=== PATIENT | male | born 1995 | race American Indian/Alaskan Native ===

== ENCOUNTER 2016-07-15 17:47 | Emergency (ER) | payer SELFPAY ==
[2016-07-15 19:29] LABS: Basophils % (Auto) 0.5 % (0.0-1.8); Eosinophils % (Auto) 1.2 % (0.0-4.3); Hematocrit 47.1 % (35.5-45.6); Hemoglobin 15.2 gm/dl (11.8-15.2); Mean Corpuscular HGB Conc 32 % (32-34); Mean Corpuscular Hemoglobin 28 pg (28-32); Mean Corpuscular Volume 86 fl (84-94); Platelet Count 217 K/mm3 (140-440); Red Blood Count 5.44 M/mm3 (3.65-5.03); Red Cell Distribution Width 14.1 % (13.2-15.2); White Blood Count 8.4 K/mm3 (4.5-11.0)
[2016-07-15 19:35] LABS: Alanine Aminotransferase 21 units/L (7-56); Albumin 4.6 g/dL (3.9-5); Albumin/Globulin Ratio 1.4 %; Alkaline Phosphatase 73 units/L (35-129); Anion Gap 17 mmol/L; BUN/Creatinine Ratio 12.72; Bilirubin,Total 0.4 mg/dL (0.1-1.2); Blood Urea Nitrogen 14 mg/dL (9-20); Calcium 9.8 mg/dL (8.4-10.2); Carbon Dioxide 27 mmol/L (22-30); Chloride 99.5 mmol/L (98-107); Glucose 92 mg/dL (75-100); Lipase 25 units/L (13-60); Potassium 4.1 mmol/L (3.6-5.0); Sodium 139 mmol/L (137-145); Total Protein 7.8 g/dL (6.3-8.2)
[2016-07-15 21:52] LABS: Bilirubin,Urine NEG (Negative); Blood,Urine NEG (Negative); Ketones,Urine NEG (Negative); Leukocyte Esterase,Urine NEG (Negative); Mucus,Urine 3+ /HPF; Nitrite,Urine NEG (Negative)
[2016-07-15 22:15] LABS: WBC,Urine < 1.0 /HPF (0.0-6.0)
[2016-07-16] MEDS ORDERED: BENTYL IM ONE (03:08)
[2016-07-16] MEDS ORDERED: PEPCID PO ONE (03:08)
[2016-07-16] MEDS ORDERED: ZOFRAN ODT PO ONE (03:08)
[2016-07-16] MEDS ORDERED: ALUM-MAG HYDROX-SIMETH 200-200-20MG/5ML PO ONE (03:08)
--- NOTE | 2016-07-16 03:09 | Emergency Department Report ---
ED Abdominal Pain HPI - General Chief Complaint: Abdominal Pain Stated Complaint: POSS STOMACH ULCER Time Seen by Provider: 07/16/16 02:58 Source: patient, RN notes reviewed Mode of arrival: Ambulatory Limitations: No Limitations - History of Present Illness Initial Comments: This is a 21-year-old male. He is previously unknown to me. He does not have a primary care doctor. He has no chronic medical conditions. He presents to the ER with epigastric and left upper quadrant pain for 6-8 months. The pain is achy and bubbling in nature. He admits to intermittent nausea and vomiting. Emesis is clear and yellow. It is nonbloody and nonbilious. There is no lower abdominal pain. He is defecating normally. He is passing gas normally. There is no testicular pain. There is no irritative or obstructive urinary symptoms. The patient reports daily consumption of marijuana. The patient reports that his symptoms occasionally improve when taking a hot shower. No recent trips greater than 4 hours. No recent hospital admissions. No leg pain. No leg swelling. The patient is not homicidal or suicidal. The patient reports that his diet is not very good, he reports that he eats a lot of heavy spicy foods, and that he does not consume enough water. MD Complaint: abdominal pain Location: LUQ, epigastric Severity scale (0 -10): 5 Quality: aching Consistency: intermittent Improves With: rest Worsens With: eating Associated Symptoms: nausea - Related Data Previous Rx's Medication Instructions Recorded Last Taken Type Dicyclomine [Bentyl] 10 mg PO QID PRN #20 capsule 07/16/16 Unknown Rx Famotidine [Pepcid] 20 mg PO BID #60 tablet 07/16/16 Unknown Rx Ondansetron [Zofran Odt] 4 mg PO QID PRN #20 tab.rapdis 07/16/16 Unknown Rx Allergies Allergy/AdvReac Type Severity Reaction Status Date / Time No Known Allergies Allergy Unverified 07/15/16 18:42 ED Review of Systems ROS: Stated complaint: POSS STOMACH ULCER Other details as noted in HPI Constitutional: denies: fever, malaise Eyes: denies: vision change ENT: denies: epistaxis Respiratory: denies: cough Cardiovascular: denies: chest pain Gastrointestinal: abdominal pain, nausea Genitourinary: denies: urgency, dysuria, testicular pain Musculoskeletal: denies: back pain Skin: denies: lesions Neurological: denies: weakness Psychiatric: denies: anxiety, homicidal thoughts, suicidal thoughts ED Past Medical Hx - Past Medical History Previous Medical History?: No - Surgical History Past Surgical History?: No - Social History Smoking Status: Current Every Day Smoker Substance Use Type: None - Medications Home Medications: Home Medications Medication Instructions Recorded Confirmed Last Taken Type Dicyclomine [Bentyl] 10 mg PO QID PRN #20 capsule 07/16/16 Unknown Rx Famotidine [Pepcid] 20 mg PO BID #60 tablet 07/16/16 Unknown Rx Ondansetron [Zofran Odt] 4 mg PO QID PRN #20 tab.rapdis 07/16/16 Unknown Rx ED Physical Exam - General Limitations: No Limitations General appearance: alert, in no apparent distress - Head Head exam: Present: atraumatic, normocephalic - Eye Eye exam: Present: normal appearance, EOMI. Absent: nystagmus - ENT ENT exam: Present: normal exam, normal orophraynx, mucous membranes moist, normal external ear exam - Neck Neck exam: Present: normal inspection, full ROM. Absent: tenderness, meningismus - Respiratory Respiratory exam: Present: normal lung sounds bilaterally. Absent: respiratory distress, wheezes, rales, rhonchi, stridor, chest wall tenderness, accessory muscle use, decreased breath sounds, prolonged expiratory - Cardiovascular Cardiovascular Exam: Present: regular rate, normal rhythm, normal heart sounds. Absent: bradycardia, tachycardia, irregular rhythm, systolic murmur, diastolic murmur, rubs, gallop - GI/Abdominal GI/Abdominal exam: Present: soft, normal bowel sounds. Absent: distended, tenderness, guarding, rebound, rigid, pulsatile mass - Rectal Rectal exam: Present: deferred - Extremities Exam Extremities exam: Present: normal inspection, full ROM, normal capillary refill. Absent: tenderness, pedal edema, joint swelling, calf tenderness - Back Exam Back exam: Present: normal inspection, full ROM. Absent: tenderness, CVA tenderness (R), CVA tenderness (L), muscle spasm, paraspinal tenderness, vertebral tenderness - Neurological Exam Neurological exam: Present: alert, oriented X3, normal gait, other (Extraocular movements intact. Tongue midline. No facial droop. Facial sensation intact to light touch in the V1, V2, V3 distribution bilaterally. 5 and 5 strength in 4 extremities.. Sensation is intact to light touch in 4 extremities.). Absent : motor sensory deficit - Psychiatric Psychiatric exam: Present: normal affect, normal mood - Skin Skin exam: Present: warm, dry, intact, normal color. Absent: rash ED Course Vital Signs 07/15/16 07/16/16 07/16/16 18:43 00:13 01:44 Temperature 98.1 F 99.6 F Pulse Rate 58 L 57 L Respiratory 20 18 18 Rate Blood Pressure 118/73 118/73 Blood Pressure [Left] O2 Sat by Pulse 99 100 Oximetry 07/16/16 07/16/16 01:59 03:00 Temperature Pulse Rate 60 60 Respiratory 18 18 Rate Blood Pressure Blood Pressure 108/68 112/72 [Left] O2 Sat by Pulse 98 97 Oximetry - Reevaluation(s) Reevaluation #1: 07/16/16 04:21 Differential diagnosis: GERD, gastritis, cannabinoid hyperemesis syndrome, reflux, constipation Assessment and plan: 21-year-old male with months of nonspecific abdominal pain. He is afebrile with reassuring vital signs, clinically sober. His abdomen is soft and benign, with no rebound, guarding or peritoneal signs. His laboratory studies were unremarkable. I instructed the patient that he will need to follow up with outpatient gastroenterology (I specifically recommended [facility], and informed the patient and his partner/ significant other that there is inpatient service hotline that can be contacted during normal business hours to arrange outpatient follow-up.) I informed the patient that he was going to be discharged, and I recommended that he discontinue marijuana consumption. I did offer treatment to the patient, but he eloped prior to receiving this treatment. 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 07/16/16 04:22 ED Medical Decision Making - Lab Data Result diagrams: 07/15/16 19:03 07/15/16 19:03 Vital Signs (72 hours) 07/15/16 07/16/16 07/16/16 18:43 00:13 01:44 Temperature 98.1 F 99.6 F Pulse Rate 58 L 57 L Respiratory 20 18 18 Rate Blood Pressure 118/73 118/73 Blood Pressure [Left] O2 Sat by Pulse 99 100 Oximetry 07/16/16 07/16/16 01:59 03:00 Temperature Pulse Rate 60 60 Respiratory 18 18 Rate Blood Pressure Blood Pressure 108/68 112/72 [Left] O2 Sat by Pulse 98 97 Oximetry Lab Results 07/15/16 07/15/16 07/15/16 Range/Units 19:03 19:03 21:13 WBC 8.4 (4.5-11.0) K/mm3 RBC 5.44 H (3.65-5.03) M/mm3 Hgb 15.2 (11.8-15.2) gm/dl Hct 47.1 H (35.5-45.6) % MCV 86 (84-94) fl MCH 28 (28-32) pg MCHC 32 (32-34) % RDW 14.1 (13.2-15.2) % Plt Count 217 (140-440) K/mm3 Lymph % (Auto) 26.6 (13.4-35.0) % [place] % (Auto) 5.7 (0.0-7.3) % Eos % (Auto) 1.2 (0.0-4.3) % Baso % (Auto) 0.5 (0.0-1.8) % Lymph # 2.2 (1.2-5.4) K/mm3 [place] # 0.5 (0.0-0.8) K/mm3 Eos # 0.1 (0.0-0.4) K/mm3 Baso # 0.0 (0.0-0.1) K/mm3 Seg Neutrophils % 66.0 (40.0-70.0) % Seg Neutrophils # 5.6 (1.8-7.7) K/mm3 Sodium 139 (137-145) mmol/L Potassium 4.1 (3.6-5.0) mmol/L Chloride 99.5 (98-107) mmol/L Carbon Dioxide 27 (22-30) mmol/L Anion Gap 17 mmol/L BUN 14 (9-20) mg/dL Creatinine 1.1 (0.8-1.5) mg/dL Estimated GFR > 60 ml/min BUN/Creatinine Ratio 12.72 % Glucose 92 (75-100) mg/dL Calcium 9.8 (8.4-10.2) mg/dL Total Bilirubin 0.4 (0.1-1.2) mg/dL AST 21 (5-40) units/L ALT 21 (7-56) units/L Alkaline Phosphatase 73 (35-129) units/L Total Protein 7.8 (6.3-8.2) g/dL Albumin 4.6 (3.9-5) g/dL Albumin/Globulin Ratio 1.4 % Lipase 25 (13-60) units/L Urine Color Yellow (Yellow) Urine Turbidity Clear (Clear) Urine pH 5.0 (5.0-7.0) Ur Specific [place] 1.032 H (1.003-1.030) Urine Protein 30 mg/dl (Negative) mg/dL Urine Glucose (UA) Neg (Negative) mg/dL Urine Ketones Neg (Negative) mg/dL Urine Blood Neg (Negative) Urine Nitrite Neg (Negative) Urine Bilirubin Neg (Negative) Urine Urobilinogen 2.0 (<2.0) mg/dL Ur Leukocyte Esterase Neg (Negative) Urine WBC (Auto) < 1.0 (0.0-6.0) /HPF Urine RBC (Auto) 1.0 (0.0-6.0) /HPF Urine Mucus 3+ /HPF Critical care attestation.: If time is entered above; I have spent that time in minutes in the direct care of this critically ill patient, excluding procedure time. ED Disposition Clinical Impression: Abdominal pain Disposition: ELOPED Is pt being admited?: No Does the pt Need Aspirin: No Condition: Stable Instructions: Abdominal Pain (ED) Additional Instructions: Take the medications as directed. Discontinue consumption of cannabis and illegal drugs. These are not good for your health. Follow-up with the primary care doctor or gastroenterology specialist within the next 7-[address] Serrano is a local primary care doctor. Dr. anna is a local gastroenterology specialist. Return to the ER right away with new pain, worsening pain, migration of pain, fevers or chills, intractable nausea or vomiting, inability to tolerate liquid feeds, new, worsening or different symptoms. Prescriptions: Dicyclomine [Bentyl] 10 mg PO QID PRN #20 capsule PRN Reason: Pain Famotidine [Pepcid] 20 mg PO BID #60 tablet Ondansetron [Zofran Odt] 4 mg PO QID PRN #20 tab.rapdis PRN Reason: Nausea Referrals: PRIMARY CARE, [Primary Care Provider] - 3-5 Days CHARLES SERRANO MD [Staff Physician] - 3-5 Days REANNA ANNA MD [Staff Physician] - 3-5 Days
[2016-07-16 03:26] VITALS: BP 112/72
== END 2016-07-16 04:00 | disposition left against medical advice (07) ==
LOC: ED 17:47
DX: R10.13 Epigastric pain (principal); R10.12 Left upper quadrant pain; F17.200 Nicotine dependence, unspecified, uncomplicated
CPT/HCPCS: 36415; 80053; 81001; 83690; 85025; 99283; J0500; Q0162

== ENCOUNTER 2017-06-06 23:29 | Emergency (ER) | payer SELFPAY ==
[2017-06-07] MEDS ORDERED: NACL 0.9% 500 ML IR ONE (00:37)
[2017-06-07] MEDS ORDERED: NACL 0.9% IR ONE ×2 (00:58→04:32)
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
[2017-06-07] MEDS ORDERED: NORCO 5/325 PO ONE (01:07)
[2017-06-07] MEDS ORDERED: BOOSTRIX IM ONE (01:07)
[2017-06-07] MEDS ORDERED: CLEOCIN IM ONE (01:12)
--- NOTE | 2017-06-07 01:33 | XRay Report ---
FINAL REPORT EXAM: XR HAND 3+V RT HISTORY: left hand injury with deep laceration TECHNIQUE: Three views of the right hand were submitted. FINDINGS: There is soft tissue swelling along the medial aspect of the proximal phalanx of the middle finger. There is no evidence of fracture or foreign body. The wrist joint is well maintained. IMPRESSION: Soft tissue swelling along the medial aspect of the proximal phalanx of the middle finger. No associated fracture.
[2017-06-07] MEDS ORDERED: MARCAINE 0.5% INFILTRATI ONE ×2 (02:46→04:31)
[2017-06-07 03:07] LABS: Basophils # (Auto) 0.1 K/mm3 (0.0-0.1); Basophils % (Auto) 0.6 % (0.0-1.8); Eosinophils # (Auto) 0.1 K/mm3 (0.0-0.4); Eosinophils % (Auto) 0.9 % (0.0-4.3); Hematocrit 44.7 % (35.5-45.6); Hemoglobin 14.9 gm/dl (11.8-15.2); Lymphocytes # (Auto) 2.8 K/mm3 (1.2-5.4); Lymphocytes % (Auto) 29.3 % (13.4-35.0); Mean Corpuscular HGB Conc 33 % (32-34); Mean Corpuscular Hemoglobin 28 pg (28-32); Mean Corpuscular Volume 85 fl (84-94); Monocytes # (Auto) 0.8 K/mm3 (0.0-0.8); Monocytes % (Auto) 8.2 % (0.0-7.3); Platelet Count 207 K/mm3 (140-440); Red Blood Count 5.29 M/mm3 (3.65-5.03); Red Cell Distribution Width 13.6 % (13.2-15.2)
--- NOTE | 2017-06-07 03:42 | Emergency Department Report ---
- General Chief Complaint: Wound/Laceration Stated Complaint: RIGHT HAND LACERATION Time Seen by Provider: 06/07/17 00:44 Source: patient, family, EMS Mode of arrival: Ambulatory Limitations: No Limitations - History of Present Illness Initial Comments: Patient here report he has cuts to fingers of right hand. He said he was playing with a knife and the knife cut his fingers at approximately 8 PM. Patient reporting pain 8 out of 10 that feels aching and throbbing. Pain is worse with movement and touch. Pain is better when not moving.. No medication taken. Tetanus vaccine is not up-to-date. Neither he numbness or tingling to fingers. Denies any pain to his wrist, forearm elbow or arm. Denies any restriction in movement to fingers of right hand. -: During the night Extremity Location: Left: Hand (third finger. Laceration and bleeding. Pain) Place: home Patient Tetanus UTD: No Context: accidental Associated Symptoms: pain. denies: loss of feeling/numbness, suspect foreign body present, unable to move injured part, weakness followed by dizziness, nausea/vomiting, fever Treatments Prior to Arrival: bandage - Related Data Previous Rx's Medication Instructions Recorded Last Taken Type Dicyclomine [Bentyl] 10 mg PO QID PRN #20 capsule 07/16/16 Unknown Rx Famotidine [Pepcid] 20 mg PO BID #60 tablet 07/16/16 Unknown Rx Ondansetron [Zofran Odt] 4 mg PO QID PRN #20 tab.rapdis 07/16/16 Unknown Rx Acetaminophen/Codeine [Tylenol 1 tab PO Q6H PRN #12 tab 06/07/17 Unknown Rx /Codeine # 3 tab] Cephalexin [Keflex] 500 mg PO Q8HR 10 Days #30 cap 06/07/17 Unknown Rx Ibuprofen [Motrin] 600 mg PO Q8H PRN #15 tablet 06/07/17 Unknown Rx Allergies Allergy/AdvReac Type Severity Reaction Status Date / Time No Known Allergies Allergy Verified 06/07/17 00:50 ED Review of Systems ROS: Stated complaint: RIGHT HAND LACERATION Other details as noted in HPI Comment: All other systems reviewed and negative Constitutional: no symptoms reported Respiratory: no symptoms reported Cardiovascular: denies: chest pain, palpitations, dyspnea on exertion, edema, syncope, paroxysmal nocturnal dyspnea Gastrointestinal: denies: nausea, vomiting Musculoskeletal: arthralgia. denies: back pain, joint swelling, myalgia Skin: other (laceration to finger of right hand) Neurological: denies: headache, numbness, paresthesias, abnormal gait, vertigo ED Past Medical Hx - Past Medical History Previous Medical History?: No - Surgical History Past Surgical History?: No - Family History Family history: no significant - Social History Smoking Status: Never Smoker Substance Use Type: None - Medications Home Medications: Home Medications Medication Instructions Recorded Confirmed Last Taken Type Dicyclomine [Bentyl] 10 mg PO QID PRN #20 capsule 07/16/16 Unknown Rx Famotidine [Pepcid] 20 mg PO BID #60 tablet 07/16/16 Unknown Rx Ondansetron [Zofran Odt] 4 mg PO QID PRN #20 tab.rapdis 07/16/16 Unknown Rx Acetaminophen/Codeine [Tylenol 1 tab PO Q6H PRN #12 tab 06/07/17 Unknown Rx /Codeine # 3 tab] Cephalexin [Keflex] 500 mg PO Q8HR 10 Days #30 cap 06/07/17 Unknown Rx Ibuprofen [Motrin] 600 mg PO Q8H PRN #15 tablet 06/07/17 Unknown Rx ED Physical Exam - General Limitations: No Limitations General appearance: alert, in no apparent distress - Head Head exam: Present: atraumatic, normocephalic, normal inspection - Eye Eye exam: Present: normal appearance, PERRL, EOMI Pupils: Present: normal accommodation - ENT ENT exam: Present: normal exam, normal orophraynx, mucous membranes moist - Neck Neck exam: Present: normal inspection, full ROM, other (no C-spine tenderness). Absent: tenderness, meningismus, lymphadenopathy, thyromegaly - Respiratory Respiratory exam: Present: normal lung sounds bilaterally. Absent: respiratory distress, chest wall tenderness - Cardiovascular Cardiovascular Exam: Present: regular rate, normal rhythm, normal heart sounds. Absent: systolic murmur, diastolic murmur - Extremities Exam Extremities exam: Present: full ROM, tenderness (third finger right hand), normal capillary refill, joint swelling (mild swelling around the laceration site at third finger right hand. Dorsal aspect between MIP and PIP joint), other (no clubbing cyanosis or edema. +2 pulses to all extremities. +5 strength in all extremities. Patient with good color, moving, temperature and sensation to all extremities.). Absent: normal inspection, pedal edema, calf tenderness - Expanded Upper Extremity Exam Right General: Present: laceration (right third digit laceration 2). Absent: normal inspection, abrasion, nail injury (#), foreign body, amputation, avulsion Shoulder Exam: Present: normal inspection, full ROM. Absent: tenderness, swelling, abrasion, laceration, ecchymosis, deformity, crepidus, dislocation, erythema, tenderness over AC joint Upper Arm exam: Present: normal inspection, full ROM. Absent: tenderness, swelling, abrasion, laceration, ecchymosis, deformity, crepidus, dislocation, erythema Elbow exam: Present: normal inspection, full ROM. Absent: tenderness, swelling , abrasion, laceration, ecchymosis, deformity, crepidus, dislocation, erythema, effusion, pain w/ pronation/supination, tenderness over radial head Forearm Wrist exam: Present: normal inspection, full ROM. Absent: tenderness, swelling, abrasion, laceration, ecchymosis, deformity, crepidus, dislocation, erythema, tenderness over anatomical snuff box, pain with axial thumb loading Hand Wrist exam: Present: full ROM (patient with full active range of motion but reports pain to right hand when moving his third finger due to laceration.) , tenderness (third digit at laceration site), swelling (third digit between MIP and DIP joints), laceration (2 right third finger.). Absent: normal inspection, abrasion, ecchymosis, deformity, crepidus, dislocation, erythema, amputation, nail avulsion, subungual hematoma Hand L/R Front: 1 - Positive: laceration Hand L/R Back: 1 - 0.5 cm laceration to dorsal aspect of third finger. Bleeding, moderately. No overt signs of foreign body seen. 2 - Positive laceration 1 cm webspace. Laceration extending to the palmar side. Neuro motor exam: Present: wrist extension intact, thumb opposition intact, thumb IP flexion intact, thumb adduction intact, fingers 2-5 abduction intact Neurosensory exam: Present: 2-point discrimination, radial nerve intact, ulnar nerve intact, median nerve intact Vascular: Present: normal capillary refill, radial pulse, brachial pulse, ulnar pulse. Absent: vascular compromise, Pallo, pulse deficit radial art, pulse deficit ulnar art, pulse deficit brachial art - Neurological Exam Neurological exam: Present: alert, oriented X3, normal gait, reflexes normal. Absent: motor sensory deficit - Psychiatric Psychiatric exam: Present: normal affect, normal mood - Skin Skin exam: Present: warm, dry, normal color, other (laceration 2 to third digit of right hand) - Expanded Skin Exam Expanded Type of lesion: Present: laceration Distribution of rash: RUE (right hand third finger) Description of rash: Present: size (1 cm circular laceration, irregular between wethis of right hand third digit. 0.5 cm laceration to third digit right hand, dorsal aspect between MIP and DIP joint), tenderness, swelling. Absent: erythematous, petechial, purpuic, discharge, fluctuant, indurated ED Course Vital Signs 06/06/17 06/07/17 23:43 02:06 Temperature 98.5 F Pulse Rate 80 Respiratory 18 18 Rate Blood Pressure 144/95 Blood Pressure 144/95 [Left] O2 Sat by Pulse 98 Oximetry - Reevaluation(s) Reevaluation #1: 06/07/17 02:11 given Boostrix 0.5 mL, clindamycin 600 mg IM and Dallas 5/325 2 tablets by mouth. He has laceration to third digit with large amount of bleeding. He had no adverse reaction from medication Reevaluation #2: 06/07/17 03:52. Laceration to right hand third digit repair. Please see procedure note for details. CBC is stable. X-ray of right hand reveal no fracture or dislocation. No foreign body seen. - Laceration /Wound Repair Right Distal Dorsal Finger Wound Location: upper extremity (right third digit dorsally) Wound Length (cm): 0 (0.5 cm) Wound's Depth, Shape: superficial, linear Wound Explored: clean Irrigated w/ Saline (ccs): 200 Betadine Prep?: Yes Anesthesia: 0.5% Sensorcaine (0.5 mL) Volume Anesthetic (ccs): 0 (0.5 mL) Wound Debrided: moderate Wound Repaired With: sutures Suture Size/Type: 4:0 (Ethilon) Number of Sutures: 4 Layer Closure?: No Sterile Dressing Applied?: Yes (patient with good neurovascular check pre-and post.) Right Proximal Finger Wound Location: upper extremity (right third digit proximally between the webspaces of the second and third digit laceration laterally innner third digit of finger) Wound Length (cm): 1 Wound's Depth, Shape: irregular, contused tissue Wound Explored: no foreign body removed Irrigated w/ Saline (ccs): 300 Betadine Prep?: Yes Anesthesia: 0.5% Sensorcaine (1 mL 0.5% Marcaine) Volume Anesthetic (ccs): 1 Wound Debrided: moderate Wound Repaired With: sutures Suture Size/Type: 4:0 (Ethilon) Number of Sutures: 11 Layer Closure?: No Sterile Dressing Applied?: Yes (patient with good neurovascular check pre-and post) ED Medical Decision Making - Lab Data Result diagrams: 06/07/17 02:54 Lab Results 06/07/17 Range/Units 02:54 WBC 9.5 (4.5-11.0) K/mm3 RBC 5.29 H (3.65-5.03) M/mm3 Hgb 14.9 (11.8-15.2) gm/dl Hct 44.7 (35.5-45.6) % MCV 85 (84-94) fl MCH 28 (28-32) pg MCHC 33 (32-34) % RDW 13.6 (13.2-15.2) % Plt Count 207 (140-440) K/mm3 Lymph % (Auto) 29.3 (13.4-35.0) % Jefferson % (Auto) 8.2 H (0.0-7.3) % Eos % (Auto) 0.9 (0.0-4.3) % Baso % (Auto) 0.6 (0.0-1.8) % Lymph # 2.8 (1.2-5.4) K/mm3 Jefferson # 0.8 (0.0-0.8) K/mm3 Eos # 0.1 (0.0-0.4) K/mm3 Baso # 0.1 (0.0-0.1) K/mm3 Seg Neutrophils % 61.0 (40.0-70.0) % Seg Neutrophils # 5.8 (1.8-7.7) K/mm3 - Radiology Data Radiology results: report reviewed x-ray of right hand reveal no acute fracture or dislocation. Pt without any foreign body seen - Medical Decision Making ED course: This is a 22-year-old male who presented to the emergency room after accidentally injuring his right hand third digit with a knife. He said he was playing around with knife and he cut his finger. Physical findings for laceration to third digit dorsally, between MIP and DIP joints. No joint involvement. He also has another laceration between the web spaces alongside right third digit that is irregular and at subcutaneous level. Minimal contusion noted. Patient will large amount of bleeding from laceration to third digit. CBC revealed normal hemoglobin and hematocrit. X-ray right hand report revealed no fracture or dislocation and no foreign body seen. Patient given Dallas 5/325 mg 2 tablets preprocedure. He was given clindamycin 600 mg milligrams IM empirically for infection and Boostrix 0.5 mL IM to update tetanus. Please refer to procedure note for detail on laceration repair. No signs of tendon injury and patient with full range of motion to his right hand. He has 2+ and bounding pulses ulnar/radial. Pre-and Post procedure. Patient discharged home in stable condition with prescription for Tylenol 3, Motrin and Keflex and to follow-up in emergency room in 7-10 days to have stitches removed. He voiced understand discharge instruction and treatment plan and that he needs to keep her from doing any chronic aggressive movement to his right hand for at least one week. Critical care attestation.: If time is entered above; I have spent that time in minutes in the direct care of this critically ill patient, excluding procedure time. ED Disposition Clinical Impression: Arthralgia of hand, right Laceration of finger of right hand without foreign body without damage to nail Qualifiers: Encounter type: initial encounter Finger: middle finger Qualified Code(s): S61.212A - Laceration without foreign body of right middle finger without damage to nail, initial encounter Injury of right hand Qualifiers: Encounter type: initial encounter Qualified Code(s): S69.91XA - Unspecified injury of right wrist, hand and finger(s), initial encounter Disposition: DC-01 TO HOME OR SELFCARE Is pt being admited?: No Does the pt Need Aspirin: No Condition: Stable Instructions: Finger Laceration (ED), Arthralgia (ED), Suture Care (ED), Acute Wound Care (ED), RICE Therapy (ED) Additional Instructions: Take antibiotic as prescribed Follow-up with your primary care physician in 2 to 3 days days Keep affected area clean and dry. Followed discharge instruction on acute wound care . Final discharge instruction on Rice therapy Please do not use right hand to do any aggressive activity for at least 1 week. Return to the emergency room in 7-10 days to have stitches removed. Please return to emergency room if you develop increasing redness, streaking, fever, difficulty moving , increasing pain to right hand to include fingers, hand, wrist and forearm Tylenol 3 causes drowsiness so please do not drive or operate heavy machinery while taking this medication. Prescriptions: Acetaminophen/Codeine [Tylenol /Codeine # 3 tab] 1 tab PO Q6H PRN #12 tab PRN Reason: moderate to severe pain Cephalexin [Keflex] 500 mg PO Q8HR 10 Days #30 cap Ibuprofen [Motrin] 600 mg PO Q8H PRN #15 tablet PRN Reason: Pain Referrals: [facility] [Outside] - 2-3 Days please return to, emergency room [Other] - 7-10 days (Current emergency room and 7-10 days to have stitches removed. Take sterile dressing off in 24 hours.) Forms: Work/School Release Form(ED)
[2017-06-07 04:17] VITALS: BP 138/90
== END 2017-06-07 04:26 | disposition home or self-care (01) ==
LOC: ED 23:29
DX: S61.212A Laceration without foreign body of right middle finger without damage to nail, initial encounter (principal); S69.91XA Unspecified injury of right wrist, hand and finger(s), initial encounter; W26.0XXA Contact with knife, initial encounter; Y93.89 Activity, other specified; Y99.8 Other external cause status; Y92.009 Unspecified place in unspecified non-institutional (private) residence as the place of occurrence of the external cause
CPT/HCPCS: 36415; 85025; 90471; 90715; 96372

== ENCOUNTER 2017-06-17 20:48 | Emergency (ER) | payer OTHER ==
[2017-06-17 22:27] VITALS: BP 122/80
--- NOTE | 2017-06-18 01:02 | Emergency Department Report ---
Suture/Staple Removal - [facility] Chief Complaint: Laceration/Recheck/Suture Stated Complaint: STITCH REMOVAL RT 3RD DIGIT Time Seen by Provider: 06/18/17 00:54 When Sutures or Axel Placed: 8-10 Days Ago Wound Location: right middle finger which was sutured 11 days ago, taking antibiotics ED Review of Systems ROS: Stated complaint: STITCH REMOVAL RT 3RD DIGIT Other details as noted in HPI Constitutional: denies: chills, fever Eyes: denies: eye pain, eye discharge, vision change ENT: denies: ear pain, throat pain Respiratory: denies: cough, shortness of breath, wheezing Cardiovascular: denies: chest pain, palpitations Endocrine: no symptoms reported Gastrointestinal: denies: abdominal pain, nausea, diarrhea Genitourinary: denies: urgency, dysuria Musculoskeletal: denies: back pain, joint swelling, arthralgia Skin: denies: rash, lesions Neurological: denies: headache, weakness, paresthesias Psychiatric: denies: anxiety, depression Hematological/Lymphatic: denies: easy bleeding, easy bruising ED Past Medical Hx - Past Medical History Previous Medical History?: No - Surgical History Past Surgical History?: No - Social History Smoking Status: Never Smoker Substance Use Type: None - Medications Home Medications: Home Medications Medication Instructions Recorded Confirmed Last Taken Type Dicyclomine [Bentyl] 10 mg PO QID PRN #20 capsule 07/16/16 Unknown Rx Famotidine [Pepcid] 20 mg PO BID #60 tablet 07/16/16 Unknown Rx Ondansetron [Zofran Odt] 4 mg PO QID PRN #20 tab.rapdis 07/16/16 Unknown Rx Acetaminophen/Codeine [Tylenol 1 tab PO Q6H PRN #12 tab 06/07/17 Unknown Rx /Codeine # 3 tab] Cephalexin [Keflex] 500 mg PO Q8HR 10 Days #30 cap 06/07/17 Unknown Rx Ibuprofen [Motrin] 600 mg PO Q8H PRN #15 tablet 06/07/17 Unknown Rx Suture Removal Exam - Exam General: Vital signs noted. No distress. Alert and acting appropriately. Wound: Yes Tenderness, No Pathologic Erythema, No Drainage, No Pus, No Wound Dehiscence Other Systems: All other systems reviewed and are unremarkable. ED Course Vital Signs 06/17/17 22:16 Temperature 98 F Pulse Rate 97 H Respiratory 18 Rate Blood Pressure 122/80 O2 Sat by Pulse 100 Oximetry ED Recheck MDM - Differential Diagnosis Wound Recheck, Suture/Staple Removal - Medical Decision Making Patient has been evaluated by this provider fast track. I discussed the patient that I will soak his finger in warm water with Betadine. To help loosen the sutures out. Patient verbalized understanding. Sutures removed. Discussed the patient he needs to keep the site clean and dry he can apply triple antibiotic to it. Critical care attestation.: If time is entered above; I have spent that time in minutes in the direct care of this critically ill patient, excluding procedure time. ED Disposition Clinical Impression: Visit for suture removal Disposition: DC-01 TO HOME OR SELFCARE Is pt being admited?: No Does the pt Need Aspirin: No Condition: Stable Instructions: Suture Removal (ED) Additional Instructions: Please keep the area clean and dry. Please be sure to moisturize her hand. Follow up with her primary care provider. Referrals: [facility] [Primary Care Provider] - 3-5 Days [facility] [Provider Group] - 3-5 Days Forms: Work/School Release Form(ED)
== END 2017-06-18 01:45 | disposition home or self-care (01) ==
LOC: ED 20:48
DX: Z48.02 Encounter for removal of sutures (principal)